=== PATIENT | female | born 1970 | race Caucasian/White ===

== ENCOUNTER 2017-02-20 06:32 | Day surgery (SDC) | payer OTHER, MEDICARE ==
[2017-02-18 14:39] LABS: HEMOGLOBIN 14.8 g/dL (12.0-16.0)
[2017-02-18 14:54] LABS: ALBUMIN 3.5 G/DL (3.5-5.0); ALKALINE PHOSPHATASE 97 U/L (45-117); BUN (BLOOD UREA NITROGEN) 10 MG/DL (6-23); CALCIUM, SERUM 8.4 MG/DL (8.5-10.4); CHLORIDE, SERUM 110 MMOL/L (96-112); CO2 (CARBON DIOXIDE) 25 MMOL/L (24-34); CREATININE 0.84 MG/DL (0.55-1.02); GFR AFRICAN AMERICAN 95 ML/MIN (>=60); GFR NON AFRICAN AMERICAN 82 ML/MIN (>=60); GLOBULIN 3.5 G/DL (2.5-4.1); GLUCOSE, SERUM 100 MG/DL (60-99); POTASSIUM, SERUM 4.4 MMOL/L (3.5-5.3); SGOT(AST) 20 U/L (5-40); SGPT(ALT) 33 U/L (5-65); SODIUM, SERUM 142 MMOL/L (135-148); TOTAL BILIRUBIN 0.3 MG/DL (0-1.2)
--- NOTE | ~2017-02-20 | OP ---
Record Of Operation [facility] [address] [place]. [address] NAME: EVON RAMIREZ : 66 STATUS : [facility]#: [id number] AGE: 46 ADM/REG DATE : 02/20/17 MR#: [id number] REPORT SERV DATE: 02/20/17 DICTATED BY: FAM DIOP DATE: 02/20/17 REPORT STATUS : Draft TRANSCRIBED BY: JACKELINE DATE: 02/20/17 DATE OF PROCEDURE: PREOPERATIVE DIAGNOSES: 1. PMS2 gene mutation. 2. History of severe inflammation and infection in the breast tissue. 3. Strong family history of breast cancer. POSTOPERATIVE DIAGNOSES: 1. PMS2 gene mutation. 2. History of severe inflammation and infection in the breast tissue. 3. Strong family history of breast cancer. PROCEDURE: Bilateral prophylactic simple mastectomy. INDICATION FOR THE PROCEDURE: Mrs. Ramirez is a relatively healthy 46-year-old female with MS. 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 The patient has an extremely strong family history of breast cancer. Her mother had breast cancer in her 40s, maternal aunt with breast cancer in her 30s, and additional maternal aunt with breast cancer in her 40s. The patient is extremely anxious regarding her risk for breast cancer, and we have discussed prophylactic mastectomies bilaterally. The patient has had significant cellulitis, skin thickening, and infection requiring hospitalization in the past for breast infections. The patient is a heavy smoker and a diabetic and understands that reconstructive efforts would need to be delayed. The patient is currently not interested in any reconstructive efforts. We have discussed that secondary to her body habitus, there is a good chance she will be left with some soft tissue mounds in the axilla bilaterally. If this turns out to be something she desires to be excised, then possibly liposuction with a plastic surgeon will be appropriate. She understands that all of this tissue cannot be removed with a mastectomy today. OPERATIVE FINDINGS: After appropriate consent was noted on the chart, the patient was taken to the operating room in the supine position. She was placed under general anesthesia without any complications. The bilateral chest wall was prepped and draped in sterile fashion. An elliptical incision was drawn on the right side to encompass the majority of the skin and soft tissue on the anterior chest wall. The incision was taken all the way back past the mid axillary line laterally to try to encompass a large amount of subcutaneous tissue in her axillary content. An incision was made with a #15 blade and dissection utilized with plasma blade. Dissection was carried to the extent of the breast parenchyma in all directions and down to the mid axillary line laterally. Dissection was carried down to the pectoralis major fascia which was taken off the muscle with the breast intact. The breast was divided from the axillary fat pad at the axillary tail, marked with a suture at the axillary tail. A large amount of additional subcutaneous tissue and skin was removed for closure. Hemostasis was achieved with Bovie cauterization. The area was irrigated copiously. A 15 round drain was placed and secured with a 2-0 nylon. The incision was closed with two layers, first layer of interrupted buried deep dermal Vicryl sutures. The skin was reapproximated with a running 4-0 Vicryl suture. The left mastectomy was performed Record Of Operation [facility] [id number] [facility] [place]. [address] NAME: EVON RAMIREZ : 66 STATUS : [facility] [place] PAT#: [id number] AGE: 46 ADM/REG DATE : 02/20/17 MR#: [id number] REPORT SERV DATE: 02/20/17 DICTATED BY: FAM DIOP DATE: 02/20/17 REPORT STATUS : Draft TRANSCRIBED BY: JACKELINE DATE: 02/20/17 in a very similar fashion. The majority of the anterior skin was removed including the tissue all the way to the mid axillary line laterally. Sharp dissection was carried down to the level of the breast parenchyma and flaps created in all directions to the extent of the breast parenchyma. Dissection was carried down to the level of the pectoralis major fascia which was taken off the muscle with the breast intact. The breast was divided from the axillary fat pad and the axillary tail. It was marked with a suture in the axillary tail and sent for permanent pathology. The wound was irrigated copiously and hemostasis achieved. A drain was placed and secured with a 2-0 nylon. Additionally, soft tissue and skin were taken for the closure. The closure was again with a deep layer of interrupted Vicryl and the superficial layer of a running 4-0 Vicryl in subcuticular fashion. The incisions were cleansed and dried. Mastisol and Steri-Strips applied. Burn fluff and a binder overlaid. Local anesthetic which was 0.25% Marcaine with epinephrine and 1% lidocaine plain were mixed and instilled into the drains prior to the patient awakening. The patient was awoken from anesthesia without complication, taken to the PACU in stable condition for recovery. All counts were correct at the end of the case. ESTIMATED BLOOD LOSS: 200 mL. COMPLICATIONS: None. SPECIMEN: Bilateral breasts. OLVIN/JACKELINE Fam Diop MD / [id number] CC: MD Eben Garcia M.D. Roger Land, M.D. [facility]
[~2017-02-20 06:32] MED LIST: ASAB PO; BACTROCR TOP; CRESTOR5 MG PO; DURICEF PO; EFFEX37.5 PO; EFFEX75 PO; EFFEXOR XR150 MG PO; GLUCPH PO; HALF81 PO; IBU800 PO; LIOR10 PO; MYCOSCROI TOP; MYCOSTATAB; NORCO1 TA1 PO; NORCO1 TAB; PROBIOTIC PO; PROZAC PO; REBI1 SC; REBIF SC; SEPTRA1 TAB PO; TECFIDERA240 MG PO; VITD PO; VOLTXR100 PO; X5 PO; ZESTRIL10 MG PO; ZESTRIL30 MG PO; ZOFRAN ODT4 MG PO; [UNRECOGNIZED DRUG - OTHER] SC
[2017-08-08] MEDS ORDERED: VITAMIN D2 PO (15:05)
[2017-08-08] MEDS ORDERED: ALEVE220 MG PO (15:21)
== END 2017-02-20 23:59 | disposition home or self-care (01) ==
LOC: SDC 06:32
PROVIDERS: Surgery Surgical Oncology
PROC: 0HTV0ZZ Resection of Bilateral Breast, Open Approach (ICD-10-PCS; principal; 2017-02-20 07:45)
DX: Z40.01 Encounter for prophylactic removal of breast (principal); E11.9 Type 2 diabetes mellitus without complications; I10 Essential (primary) hypertension; E78.00 Pure hypercholesterolemia, unspecified; G35 Multiple sclerosis; F17.210 Nicotine dependence, cigarettes, uncomplicated; Z80.3 Family history of malignant neoplasm of breast; Z90.89 Acquired absence of other organs; Z98.51 Tubal ligation status; Z98.890 Other specified postprocedural states; Z86.73 Personal history of transient ischemic attack (TIA), and cerebral infarction without residual deficits; Z90.710 Acquired absence of both cervix and uterus
CPT/HCPCS: 71020; 80053; 82962; 85014; 85018; 88307; 93005; A9270-GY; J0690; J1170; J2250; J2405; J2550; J2710; J3010